=== PATIENT | male | born 1995 | race Caucasian/White ===

== ENCOUNTER 2017-11-27 20:32 | Emergency (ER) | payer BC ==
[~2017-11-27] VITALS: Ht 177.8 cm; Wt 65.5 kg
[2017-11-27 21:51] VITALS: BP 146/95
== END 2017-11-27 21:55 | disposition home or self-care (01) ==
LOC: EME 20:32
PROC: 0HQLXZZ Repair Left Lower Leg Skin, External Approach (ICD-10-PCS; principal; 2017-11-27)
DX: S81.812A Laceration without foreign body, left lower leg, initial encounter (principal); W45.8XXA Other foreign body or object entering through skin, initial encounter; W22.8XXA Striking against or struck by other objects, initial encounter; Y93.55 Activity, bike riding
CPT/HCPCS: 99281; 99284

== ENCOUNTER 2017-12-05 16:56 | Emergency (ER) | payer BC ==
[~2017-12-05] VITALS: Ht 177.8 cm; Wt 66.2 kg
[2017-12-05 17:18] VITALS: BP 137/99
== END 2017-12-05 17:19 | disposition home or self-care (01) ==
LOC: EME 16:56 → EXP 16:56
DX: S81.812D Laceration without foreign body, left lower leg, subsequent encounter (principal); Z48.02 Encounter for removal of sutures
CPT/HCPCS: 99281; 99283